=== PATIENT | female | born 1975 | race Two or more races ===

== ENCOUNTER 2018-04-16 09:24 | Outpatient (CLI) | payer OTHER | END 2018-04-16 09:31 | disposition home or self-care (01) | LOC: SONOGRAMA 09:24 → MAMO-SONO 09:45 | DX: N89.0 Mild vaginal dysplasia (principal) ==

== ENCOUNTER 2018-08-26 08:49 | Day surgery (SDC) | payer OTHER | END 2018-08-26 14:40 | disposition home or self-care (01) | LOC: CIR.AMB 08:49 | DX: O02.1 Missed abortion (principal); Z3A.08 8 weeks gestation of pregnancy ==

== ENCOUNTER 2022-11-08 10:41 | Inpatient (IN) | payer OTHER ==
[~2022-11-08] VITALS: Ht 165.1 cm; Wt 70.8 kg
[2022-11-15] MEDS ORDERED: Tylenol #3 PO (08:29)
[2022-11-15] MEDS ORDERED: NAPR500T14 PO (08:29)
== END 2022-11-15 10:32 | disposition home or self-care (01) | DRG 743 ==
LOC: O/R 11-14 06:06 → OB/GYN 11-14 06:06
PROVIDERS: ADMIT Obstetrics & Gynecology; ATTEND Obstetrics & Gynecology
PROC: 0UT7FZZ Resection of Bilateral Fallopian Tubes, Via Natural or Artificial Opening With Percutaneous Endoscopic Assistance (ICD-10-PCS; 2022-11-14)
PROC: 0DNW4ZZ Release Peritoneum, Percutaneous Endoscopic Approach (ICD-10-PCS; 2022-11-14)
PROC: 0JQC0ZZ Repair Pelvic Region Subcutaneous Tissue and Fascia, Open Approach (ICD-10-PCS; 2022-11-14)
PROC: 0USG0ZZ Reposition Vagina, Open Approach (ICD-10-PCS; 2022-11-14)
PROC: 0TJB8ZZ Inspection of Bladder, Via Natural or Artificial Opening Endoscopic (ICD-10-PCS; 2022-11-14)
PROC: 0UT9FZZ Resection of Uterus, Via Natural or Artificial Opening With Percutaneous Endoscopic Assistance (ICD-10-PCS; principal; 2022-11-14 09:30)
DX: D25.1 Intramural leiomyoma of uterus (principal); D25.2 Subserosal leiomyoma of uterus; D25.0 Submucous leiomyoma of uterus; Z20.822 Contact with and (suspected) exposure to COVID-19